=== PATIENT | female | born 1970 | race Caucasian/White ===

== ENCOUNTER 2017-07-11 08:10 | Emergency (ER) | payer OTHER ==
[~2017-07-11] VITALS: Ht 154.9 cm; Wt 62.0 kg
[2017-07-11 08:14] VITALS: Ht 154.9 cm; Wt 62.0 kg
[2017-07-11] MEDS ORDERED: OXYMETAZOLINE 0.05% 15 ML NAS SPRAY NASAL ONE (08:30)
[2017-07-11] MEDS ORDERED: ALBU8.5H3 INH (09:09)
[2017-07-11] MEDS ORDERED: BUPR-34 PO (09:10)
[2017-07-11] MEDS ORDERED: MIRT30TA PO (09:10)
[2017-07-11] MEDS ORDERED: MONT10TA21 PO (09:12)
[2017-07-11] MEDS ORDERED: ESOM20CA PO (09:13)
[2017-07-11] MEDS ORDERED: [UNRECOGNIZED DRUG - CODE] PO (09:16)
[2017-07-11] MEDS ORDERED: ONDANSETRON 4 MG INJ ONE (09:24)
[2017-07-11] MEDS ORDERED: ONDANSETRON (ODT) 4 MG TAB ODT STA (09:27)
--- NOTE | 2017-07-11 10:30 | ERD ---
ER Documentation Chief Complaint Date/Time DATE: 07/11/17 TIME: 10:29 Chief Complaint pt bib friend with c/o nose bleed starting this am approx 0730 no cause HPI This is a 39-year-old female here for nosebleed. The patient says she was sitting in her car when her right anterior nose started to bleed. She had no headache does not blow her nose did not pick her nose. She says she has has nosebleeds off and on throughout the past couple years. No dizziness syncope. No blood thinners or aspirin products have been taken ROS All systems reviewed and are negative except as per history of present illness. Medications Home Meds Reported Medications Norethindrone-E.estradiol-Iron (Microgestin Fe 1-20 Tablet) 1 Each Tablet, 1 EACH PO DAILY, TAB 07/11/17 Esomeprazole Mag Trihydrate (Nexium) 20 Mg Capsule.dr, 20 MG PO EVERY OTHER MORNING, #30 CAP 07/11/17 Montelukast Sodium* (Singulair*) 10 Mg Tablet, 10 MG PO QHS, #30 TAB 07/11/17 Mirtazapine* (Remeron*) 30 Mg Tablet, 30 MG PO QPM, TAB 07/11/17 Bupropion Hcl* (Wellbutrin SR*) 150 Mg Tablet.sa, 150 MG PO BID, TAB.SA 07/11/17 Albuterol Sulfate* (Proair HFA*) 8.5 Gm Hfa.aer.ad, 2 PUFF INH Q6H Y for WHEEZING AND SOB, #1 INHALER 07/11/17 Allergies Allergies: Coded Allergies: Penicillins (Verified Allergy, Unknown, 07/11/17) cephalexin (Verified Allergy, Unknown, 07/11/17) levofloxacin (Verified Allergy, Unknown, 07/11/17) PMhx/Soc Medical and Surgical Hx: pt denies Medical Hx Smoking Status: Never smoker FmHx Family History: No coronary disease Physical Exam Vitals Vital Signs Date Time Temp Pulse Resp B/P Pulse Ox O2 Delivery O2 Flow Rate FiO2 07/11/17 08:14 98.3 68 16 166/75 100 Physical Exam Const: Well-developed, well-nourished Head: Atraumatic, normocephalic Eyes: Normal Conjunctiva, PERRLA, EOMI, normal sclera, no nystagmus ENT: Normal External Ears, right anterior nosebleed, moist mucus membranes. Neck: Full range of motion. No meningismus, no lymphadenopathy. Resp: Clear to auscultation bilaterally, no wheezing, rhonchi, rales Cardio: Regular rate and rhythm, no murmurs, S1 S2 present Abd: Soft, non tender x 4, non distended. Normal bowel sounds, no guarding or rebound, no pulsitile abdominal masses or bruits Skin: No petechiae or rashes, no ecchymosis , no maculopapular rash Back: No midline or flank tenderness Ext: No cyanosis, or edema, FROM x 4, normal inspection, neurovascularly intact x 4 Neur: Awake and alert, STR 5/5 x 4, sensation intact x 4, no focal findings, cerebellum intact Psych: Normal Mood and Affect Results 24 hrs Current Medications Medications (Trade) Dose Ordered Sig/Mackenzie Route PRN Reason Start Time Stop Time Status Last Admin Dose Admin Oxymetazoline HCl (Afrin [place]) 2 spray ONCE ONCE NASAL 07/11/17 08:30 07/11/17 08:31 DC 07/11/17 08:38 Ondansetron HCl (Zofran Inj) 4 mg STK-MED ONCE .ROUTE 07/11/17 09:24 07/11/17 09:25 DC Ondansetron HCl (Zofran Odt) 8 mg ONCE STAT ODT 07/11/17 09:27 07/11/17 09:28 DC 07/11/17 09:44 Procedures/MDM Patient had Afrin spray with nasal clamps placed. After some observation bleeding is now stopped Departure Diagnosis: Primary Impression: Epistaxis Condition: Stable Patient Instructions: Epistaxis (Adult) MARYLIN FISCHER DO Jul 11, 2017 10:30
[2017-07-11 10:48] VITALS: BP 116/72; PULSE 96; RESP 17
== END 2017-07-11 10:48 | disposition home or self-care (01) ==
LOC: E/R 08:10
DX: R04.0 Epistaxis (principal)
CPT/HCPCS: 99283; J2405